=== PATIENT | male | born 1970 | race Two or more races ===

== ENCOUNTER 2021-11-30 10:12 | Emergency (ER) | payer MEDICAID ==
[~2021-11-30] VITALS: Ht 170.2 cm; Wt 63.6 kg
[2021-11-30 10:45] VITALS: BP 164/120
--- NOTE | 2021-11-30 13:50 | NUR ---
Pt given water per pt request.
== END 2021-11-30 15:12 | disposition home or self-care (01) ==
LOC: ER 10:13 → EDBD 10:13 → ER 15:12
DX: U07.1 COVID-19 (principal); R11.2 Nausea with vomiting, unspecified; K85.20 Alcohol induced acute pancreatitis without necrosis or infection; I10 Essential (primary) hypertension; F17.200 Nicotine dependence, unspecified, uncomplicated; Z72.89 Other problems related to lifestyle; Z90.49 Acquired absence of other specified parts of digestive tract
CPT/HCPCS: 99281